=== PATIENT | male | born 1980 | race Caucasian/White ===

== ENCOUNTER 2019-08-24 14:19 | Outpatient (CLI) | payer SELFPAY ==
[2019-08-26 15:54] LABS: COVID-19 RT-PCR Result Not Detected (NotDetected)
== END 2019-08-24 14:39 ==
PROVIDERS: Visit Provider Family Medicine
DX: Z20.828 Contact with and (suspected) exposure to other viral communicable diseases (principal)
CPT/HCPCS: U0003

== ENCOUNTER 2020-05-08 09:50 | Outpatient (REF) | payer MEDICAID, SELFPAY ==
[2020-05-08 19:18] LABS: Anion Gap 8.4 mmol/L (3-11); BUN 18 mg/dL (7-18); CO2 26.6 mmol/L (21.0-32.0); CREATININE 1.07 mg/dL (0.70-1.30); Calcium 8.8 mg/dL (8.5-10.1); Calculated LDL 201 mg/dL (<100); Chloride 104 mmol/L (98-107); Cholesterol 265 mg/dL (<200); Glucose 97 mg/dL (74-106); HDL Cholesterol 50 mg/dL (40-60); Potassium 4.1 mmol/L (3.5-5.1); Sodium 139 mmol/L (136-145); Triglyceride 73 mg/dL (<150)
== END 2020-05-08 10:10 ==
LOC: NCHCN 09:50
PROVIDERS: Visit Provider Physician Assistant
DX: Z13.220 Encounter for screening for lipoid disorders (principal); Z13.228 Encounter for screening for other metabolic disorders; Z00.00 Encounter for general adult medical examination without abnormal findings
CPT/HCPCS: 80048; 80061

== ENCOUNTER 2023-02-05 16:29 | Outpatient (REF) | payer MEDICAID, SELFPAY ==
[2023-02-05 17:22] LABS: Anion Gap 6.3 mmol/L (3-11); BUN 14 mg/dL (7-18); CO2 28.7 mmol/L (21.0-32.0); Calculated LDL 192 mg/dL (<100); Chloride 103 mmol/L (98-107); Cholesterol 276 mg/dL (<200); Estimated GFR 97.58 (mL/min/1.73m2); Glucose 94 mg/dL (74-106); HDL Cholesterol 55 mg/dL (40-60); Potassium 4.4 mmol/L (3.5-5.1); Sodium 138 mmol/L (136-145); Triglyceride 149 mg/dL (<150)
== END 2023-02-05 16:30 | disposition home or self-care (01) ==
LOC: NCHCN 16:29
PROVIDERS: Visit Provider Physician Assistant
DX: E78.5 Hyperlipidemia, unspecified (principal); Z00.00 Encounter for general adult medical examination without abnormal findings
CPT/HCPCS: 80048; 80061

== ENCOUNTER 2023-11-25 21:36 | Outpatient (REF) | payer MEDICAID, SELFPAY | END 2023-11-25 21:37 | disposition home or self-care (01) | LOC: LBN 21:36 | PROVIDERS: Visit Provider Nurse Practitioner Family | DX: R31.9 Hematuria, unspecified (principal) | CPT/HCPCS: 87086 ==

== ENCOUNTER 2024-08-18 01:48 | Outpatient (CLI) | payer MEDICAID, SELFPAY ==
[2024-08-18] MEDS: Simethicone/Sod Bicarb/Cit Ac, 4 gram PACKET 1 PACKET PO (09:56)
[2024-08-18] MEDS: Barium Sulfate 700 MG TAB PO (09:57)
[2024-08-18] MEDS: Barium Sulfate 60% W/V 355 ML BTL PO (09:58)
[2024-08-18] MEDS: Barium Sulfate 98% W/W 140 ML BTL PO (10:01)
--- NOTE | 2024-08-18 10:06 | DI.RAD_ITS ---
Exam(s) RF BARIUM SWALLOW EXAM: RF BARIUM SWALLOW CLINICAL HISTORY: Dysphagia, R13.10 TECHNIQUE: 2D and realtime digital imaging was performed. CONTRAST MATERIAL: Thick and thin barium and barium tablet were administered. COMPARISON: No exams were available for comparison FINDINGS: The PA and lateral chest films show normal heart size and clear lung taylor. The lateral medical staff credentialing coordinator view of the neck is shows mild degenerative disc changes at C6-7. Esophagus: The patient swallowed barium without difficulty. Noevidence for mucosal erosions. Nofol d thickening. No mass is visible. Nostricture. No aspiration. Motility: There is a normal primary stripping wave. Mild tertiary contractions were noted. There is no hiatal hernia. Stomach and duodenum are grossly normal. Nogastroesophageal reflux was observed during the exam. IMPRESSION: Mild tertiary contractions of the distal esophagus. No evidence of reflux. RADIATION DOSE DELIVERED: nilsa Aragon=16.4 mGy
== END 2024-08-18 02:08 ==
LOC: DI 01:48
PROVIDERS: PCP Physician Assistant; Visit Provider Physician Assistant
DX: K22.4 Dyskinesia of esophagus (principal)
CPT/HCPCS: 74221; J3490